=== PATIENT | female | born 2000 | race Caucasian/White ===

== ENCOUNTER 2022-04-19 14:32 | Inpatient (IN) | payer OTHER ==
[~2022-04-19] VITALS: Ht 167.6 cm; Wt 160.6 kg
--- NOTE | 2022-05-02 08:49 | NUR ---
05/02/22 0849 Justina Whiteside 0832 PATIENT IN ROOM. REPORT RECIEVED FROM ERIKA BARDALES. PATIENT IS AWAKE AND ORIENTED. BREATHING EQUAL AND UNLABORED. OXYGEN SATURATIONS ABOVE 95%. PATIENT DENIES ANY PAIN OR NAUSEA. SPINAL LEVEL CHECKED, FLUIDS LR WITH 20 OF PIT. IV SITE IS LEFT AC 18 GAUAGE SITE IS PATENT. FATHER PRESENT IN ROOM AT BEDSIDE. SR ON TELE. 0845 PATIENT AWAKE AND ORIENTED. DENIES ANY PAIN OR NAUSEA. BREATHING EQUAL AND UNLABORED. OXYGEN SATURATIONS ABOVE 95%. IVF INFUSING. PATIENT REQUESTING WATER. MOUTH SWABS GIVEN. SCD'S ON. FUNDAL CHECKS COMPLETE.
--- NOTE | 2022-05-03 13:22 | PR ---
[facility] [address], [place] [address] Signed PP Progress Notes Datetime Report Generated by CPN: 05/03/2022 13:21 SUBJECTIVE: [id number] Pain: Within Normal Limits Nausea/Vomiting: Denies Flatus: Yes Vital Signs: [id number] Vital Signs: Reviewed; Within Normal Limits EXAM: Ongoing Cardiovascular: Normal Respiratory: Normal Abdomen/Uterus: Normal Lochia: Normal Vulva/Perineum: Not Done Breasts: Not Done CVA Tenderness: Normal Extremities: Normal Incision: Normal Progress: Normal Exam Comments: Fundus firm U-2 nontender. superficial irritation of the panis unchanged from yesterday c/w yeast. Incision intact. SCDs NOT in place; discussed importance of SCDs IMPRESSION/PLAN/PROCEDURES: [id number] Impression: Normal Progression Plan: Continue Present Management Progress Notes: Pt seen and examined. Doing well. Ambulating, voiding, and tolerating full diet. Pain and lochia minimal. Breastfeedig well. C/O irritation of the panis. No fevers/chills. On exam, unchanged superficial irritation of the panis c/w yeast. Will add antifungal Signing Physician: Mercy Samaniego DO Copies: ~ *Electronically Signed* 05/03/22 2268 MERCY SAMANIEGO DO PATIENT NAME: LEOPOLDO NGUYEN PROGRESS NOTE DATE OF : 00 PHYSICIAN: MERCY SAMANIEGO DO RPT #: [id number] REPORT IS CONFIDENTIAL AND NOT TO BE RELEASED WITHOUT AUTHORIZATION
--- NOTE | 2022-05-04 09:01 | PR ---
[facility] [address] [facility] [place], [place] [address] Signed PP Progress Notes Datetime Report Generated by CPN: 05/04/2022 09:01 SUBJECTIVE: [id number] Pain: Within Normal Limits Nausea/Vomiting: Denies Flatus: Yes Vital Signs: [id number] Vital Signs: Reviewed; Within Normal Limits EXAM: Ongoing Cardiovascular: Normal Respiratory: Normal Abdomen/Uterus: Normal Lochia: Normal Vulva/Perineum: Not Done Breasts: Not Done CVA Tenderness: Normal Extremities: Normal Incision: Normal Progress: Normal Exam Comments: Fundus firm nontender. Incision well healing IMPRESSION/PLAN/PROCEDURES: [id number] Impression: Normal Progression Plan: Continue Present Management Progress Notes: Pt seen and examined. Doing well. Ambulating, voiding, and tolerating full diet. Pain and lochia minimal. well. No fevers/chills. C/O some depression sx. Pt reports she weaned herself off her antidepressant about a month ago but would like to restart. Will review rx from Dr. Woodall and likely refill from the office today. Anticipate d/c home tomorrow. Signing Physician: Mercy Samaniego DO Copies: ~ *Electronically Signed* 05/04/22900 MERCY SAMANIEGO DO PATIENT NAME: LEOPOLDO NGUYEN PROGRESS NOTE DATE OF : 00 PHYSICIAN: MERCY SAMANIEGO DO RPT #: [id number] REPORT IS CONFIDENTIAL AND NOT TO BE RELEASED WITHOUT AUTHORIZATION
--- NOTE | 2022-05-05 12:33 | PR ---
[facility] [address] [facility] [place], [place] [address] Signed PP Progress Notes Datetime Report Generated by CPN: 05/05/2022 12:33 SUBJECTIVE: [id number] Pain: Within Normal Limits Nausea/Vomiting: Denies Flatus: Yes Bowel Movement: Yes Vital Signs: [id number] Vital Signs: Reviewed; Within Normal Limits EXAM: Ongoing Cardiovascular: Normal Respiratory: Normal Abdomen/Uterus: Normal Lochia: Normal Vulva/Perineum: Not Done Breasts: Not Done CVA Tenderness: Normal Extremities: Normal Incision: Normal Progress: Normal Exam Comments: Fundus firm U-2 nontender (difficult to palpate due to body habitus). Incision clean dry intact w/ jack in place IMPRESSION/PLAN/PROCEDURES: [id number] Impression: Normal Progression Plan: Discharge Progress Notes: Pt seen and examined. Doing well. Ambulating, voiding, and tolerating full diet. Pain and lochia minimal. well. No lightheadedness, dizziness, or fevers. Signing Physician: Mercy Samaniego DO Copies: ~ *Electronically Signed* 05/05/22 1233 MERCY SAMANIEGO DO PATIENT NAME: LEOPOLDO NGUYEN PROGRESS NOTE DATE OF : 00 PHYSICIAN: MERCY SAMANIEGO DO RPT #: [id number] REPORT IS CONFIDENTIAL AND NOT TO BE RELEASED WITHOUT AUTHORIZATION
--- NOTE | 2022-05-07 17:43 | OR ---
[facility] [address] [place], [place] [address] Signed DATE OF OPERATION: 05/02/2022 SURGEON: Mercy Samaniego DO PREOPERATIVE DIAGNOSES: 1. Term and 39 weeks gestation. 2. History of prior delivery. 3. Morbid obesity. POSTOPERATIVE DIAGNOSES: 1. Term and 39 weeks gestation. 2. History of prior delivery. 3. Morbid obesity. 4. Omental adhesions. PROCEDURE PERFORMED: Repeat low transverse delivery. ANESTHESIA: Spinal. NAIL PROFESSIONAL: Andrea Shah MD. ESTIMATED BLOOD LOSS: 400 mL. DRAINS: Chavez to gravity. FINDINGS: Delivery of viable female , 8 pounds 6 ounces in the HENRY position with Apgars of 9 and 9. No nuchal cord. Normal uterus, tubes, ovaries, and placenta. There was one moderate omental adhesion to the peritoneum. INDICATIONS: Ms. Coleman is a pleasant 21-year-old patient with one prior , who presented to Labor and Delivery for repeat low transverse delivery at 39 weeks gestation. Risks, benefits, and alternatives were discussed in detail with the patient. The patient understands and wished to proceed with procedure. Electronically Signed By: MERCY SAMANIEGO DO 05/07/22 1743 PATIENT NAME: LEOPOLDO NGUYEN OPERATIVE REPORT DATE OF : 00 REPORT #: [id number] PHYSICIAN: MERCY SAMANIEGO DO PCP: CJ MARTINEZ MD REPORT IS CONFIDENTIAL AND NOT TO BE RELEASED WITHOUT AUTHORIZATION [facility] [address] [place], [place] [address] Signed TECHNIQUE: The patient was taken to the operating room. A time-out was performed to confirm correct patient, correct procedure. Spinal anesthesia was adequately established and the patient was prepped and draped in the supine position with a bump on the right hip. Chavez catheter was inserted. The patient received Ancef 3 g preoperatively per SCIP protocol and no heparin was administered. Once spinal anesthetic was noted to be adequate, a Pfannenstiel skin incision was made cutting through her prior incision scar. Incision was carried down to the fascia. The fascia was nicked in the midline and fascial incision was extended bilaterally using curved Gonzales scissors. The fascia was grasped with Nickie's, elevated, and the underlying rectus muscle dissected off bluntly and sharply. The peritoneum was grasped with hemostats, elevated, and entered sharply. Omental adhesions were noted. The peritoneum was carefully opened cephalad, caudad using sharp and blunt dissection. Portions of the adhered omentum to the peritoneum were doubly clamped, cut, and ligated using 2-0 chromic. Once omental adhesions were addressed, the peritoneal incision was extended with blunt dissection. The lower uterine segment identified. Hysterotomy was then performed using surgical scalpel. Clear amniotic fluid was noted. Hysterotomy was extended bilaterally using blunt dissection. The surgeon's hand was placed in the uterine cavity. The head elevated in the abdomen, delivered with the assistance of fundal pressure in the HENRY position. No nuchal cord was identified. The was then gently delivered with the assistance of fundal pressure and was vigorous and cried upon delivery. Cord was doubly clamped and cut. The handed to the waiting pediatric team for further care. Cord blood and portion of the cord were obtained for routine testing. The placenta was then expressed intact with centrally inserted three-vessel cord. The uterus was quite firm and bleeding was minimal. Once all products of conception removed from the uterine cavity, the uterus was reapproximated using 0 Monocryl in 2 layers. The 1st being a running locked layer and the 2nd an imbricating running layer with excellent hemostasis appreciated. Small amount of oozing was made hemostatic with Bovie electrocautery. The pelvis was irrigated and found to be hemostatic. The peritoneum was then reapproximated using 2-0 Vicryl in a running nonlocked manner. The rectus was examined, found to be hemostatic. This was then plicated in the midline with 3 loose interrupted sutures. The rectus was closely examined and found to be hemostatic. Fascia was then reapproximated using 0 Vicryl in a running nonlocked manner. Subcu was irrigated and found to be hemostatic. It was then closed in 3 layers, the 1st being deep layers of 3-0 Vicryl. This skin was then reapproximated using surgical jack. The uterus was Crede'd for scant amount of blood and the patient was taken to the PACU in good and stable condition. Sponge, needle, and instrument counts were correct x2 at the end of the procedure. Dr. Shah was present and participated in all portions of procedure. Electronically Signed By: MERCY SAMANIEGO DO 05/07/22 1968 PATIENT NAME: LEOPOLDO NGUYEN OPERATIVE REPORT DATE OF : 00 REPORT #: [id number] PHYSICIAN: MERCY SAMANIEGO DO PCP: CJ MARTINEZ MD REPORT IS CONFIDENTIAL AND NOT TO BE RELEASED WITHOUT AUTHORIZATION [address] [address] Signed Mercy Samaniego DO JDW/MODL /[id number] Copies: ~ Electronically Signed By: MERCY SAMANIEGO DO 05/07/22 1743 PATIENT NAME: LEOPOLDO NGUYEN NAKUL OPERATIVE REPORT DATE OF : 00 REPORT #: [id number] PHYSICIAN: MERCY SAMANIEGO DO PCP: CJ MARTINEZ MD REPORT IS CONFIDENTIAL AND NOT TO BE RELEASED WITHOUT AUTHORIZATION
== END 2022-05-05 12:34 | disposition home or self-care (01) | DRG 787 ==
LOC: FBC 05-02 00:02 → MS 05-02 07:30 → FBC 05-05 12:34
PROVIDERS: ADMIT Obstetrics & Gynecology; ATTEND Obstetrics & Gynecology
PROC: 10D00Z1 Extraction of Products of Conception, Low, Open Approach (ICD-10-PCS; principal; 2022-05-02 07:30)
DX: O34.211 Maternal care for low transverse scar from previous cesarean delivery (principal); O98.92 Unspecified maternal infectious and parasitic disease complicating childbirth; O99.214 Obesity complicating childbirth; E66.01 Morbid (severe) obesity due to excess calories; Z3A.39 39 weeks gestation of pregnancy; Z37.0 Single live birth; Z20.822 Contact with and (suspected) exposure to COVID-19; B37.2 Candidiasis of skin and nail; O99.345 Other mental disorders complicating the puerperium; F53.0 Postpartum depression; F41.9 Anxiety disorder, unspecified; Z87.891 Personal history of nicotine dependence; Z98.890 Other specified postprocedural states; Z90.49 Acquired absence of other specified parts of digestive tract; Z87.440 Personal history of urinary (tract) infections; Z86.19 Personal history of other infectious and parasitic diseases; Z79.899 Other long term (current) drug therapy; Z88.9 Allergy status to unspecified drugs, medicaments and biological substances
CPT/HCPCS: 36415; 85027; 86850; 86900; 86901; 87502; A9270; J0690; J1650; J1885; J2274; J2300; J2370; J2405; J2590; J7121; U0003

== ENCOUNTER 2023-09-16 13:23 | Emergency (ER) | payer OTHER ==
[~2023-09-16] VITALS: Ht 165.1 cm; Wt 155.8 kg
[~2023-09-16 13:23] MED LIST: BACTRIM DS TAB1 EACH PO; M-NATAL PLUS T1 EACH PO
--- OUTSIDE RECORDS SUMMARY | 2023-09-16 13:30 | XMS ---
PreManage Notification: LEOPOLDO EWING Security Field Automobile Adjuster Events No recent Security Events currently on file CRITERIA MET - [place] [facility] - 2 Visits in 30 Days CARE PROVIDERS Mickie Herzog Community Health Worker 07/03/2019-Current PHONE: [phone] -, Tawnya- Dentist: Sound Equipment Mechanic Current [facility] PHONE: [phone] [facility] PHONE: Unknown Care Guidelines exist for the following facilities: Sumomi Venango ( 05/27/2021 ) Boxed ( 07/26/2020 ) My VISIT COUNT (12 MO.) 3 [facility] 2 [facility] TOTAL 5 NOTE: Visits indicate total known visits. ED/UCC VISIT TRACKING (12 MO.) 09/16/2023 13:23 [facility] [place] TYPE: Emergency COMPLAINT: - ABDOMINAL PAIN 08/18/2023 01:42 [facility] [place] TYPE: Emergency COMPLAINT: - R INNER THIGH DIAGNOSES: - Allergy status to other antibiotic agents - Cellulitis of right lower limb - Disorder of the skin and subcutaneous tissue, unspecified - Personal history of nicotine dependence 04/05/2023 09:45 [facility] [place] TYPE: Emergency DIAGNOSES: - Abnormal uterine and vaginal bleeding, unspecified - VAGINAL BLEEDING 01/19/2023 13:28 [facility] [place] TYPE: Emergency DIAGNOSES: - Acute cystitis without hematuria - UTI SOB 10/15/2022 16:47 [facility] [place] TYPE: Emergency DIAGNOSES: - Acute upper respiratory infection, unspecified - not feeling well INPATIENT VISIT TRACKING (12 MO.) No inpatient visits to display in this time frame [email or web address]
[2023-09-16 14:16] LABS: BASOPHILS 0.9 % (0-2); EOSINOPHILS 1.5 % (0-6); HEMATOCRIT 42.8 % (35.0-50.0); HEMOGLOBIN 13.9 g/dL (12.0-18.0); LYMPHOCYTES 25.9 % (24-44); MCH 28.9 (27-36); MCHC 32.6 g/dl (30-36); MCV 88.8 fl (81-99); NEUTROPHILS 66.7 % (39-80); PLATELET COUNT 295 K/uL (140-440); RBC 4.82 M/ul (4.3-5.7)
[2023-09-16 14:32] LABS: ALBUMIN 3.5 g/dL (3.4-5.0); ANION GAP 13.7 (7-21); BILIRUBIN, TOTAL 0.8 ng/dL (0.2-1.0); BUN/CREATININE RATIO 10.12 (6.0-28.6); CALCIUM 8.3 mg/dL (8.5-10.1); CREATININE, SERUM 0.79 mg/dL (0.55-1.02); POTASSIUM 3.7 mmol/L (3.5-5.1)
[2023-09-16 15:33] VITALS: BP 102/73
== END 2023-09-16 15:33 | disposition home or self-care (01) ==
LOC: ED 13:23
PROVIDERS: Emergency Medicine
DX: R10.2 Pelvic and perineal pain (principal); E66.9 Obesity, unspecified; Z68.43 Body mass index [BMI] 50.0-59.9, adult; Z87.891 Personal history of nicotine dependence
CPT/HCPCS: 36415; 80053; 84703; 85025; J1885

== ENCOUNTER 2023-11-18 18:48 | Emergency (ER) | payer OTHER ==
[~2023-11-18] VITALS: Ht 165.1 cm; Wt 153.3 kg
--- OUTSIDE RECORDS SUMMARY | 2023-11-18 18:56 | XMS ---
PreManage Notification: LEOPOLDO EWING Security Office Correspondent Events No recent Security Events currently on file CRITERIA MET - [facility] - 2 Visits in 30 Days CARE PROVIDERS Mickie Herzog Community Health Worker 07/03/2019-Current PHONE: [phone] -, Tawnya- Dentist: Plastics Seasoner Operator [facility] PHONE: [phone] [facility] Current \F\ [facility] PHONE: [phone] GISSEL JOHNSON [facility] Current PHONE: Unknown Care Guidelines exist for the following facilities: [employer] ( 05/27/2021 ) [email or web address] ( 01/22/2019 ) My VISIT COUNT (12 MO.) 4 [facility] 2 [facility] TOTAL 6 NOTE: Visits indicate total known visits. ED/UCC VISIT TRACKING (12 MO.) 11/18/2023 18:48 [facility] [place] TYPE: Emergency COMPLAINT: - VAG BLEEDING 11/03/2023 19:04 [facility] [place] TYPE: Emergency COMPLAINT: - HAND PAIN DIAGNOSES: - Allergy status to other antibiotic agents - Contusion of left hand, initial encounter - Contusion of right hand, initial encounter - Fall (on) (from) unspecified stairs and steps, initial encounter - Personal history of nicotine dependence - Unspecified asthma, uncomplicated 09/16/2023 13:23 [facility] [place] TYPE: Emergency COMPLAINT: - ABDOMINAL PAIN DIAGNOSES: - Body mass index [BMI] 50.0-59.9, adult - Left lower quadrant pain - Obesity, unspecified - Pelvic and perineal pain - Personal history of nicotine dependence 08/18/2023 01:42 [facility] [place] TYPE: Emergency COMPLAINT: - R INNER THIGH DIAGNOSES: - Allergy status to other antibiotic agents - Cellulitis of right lower limb - Disorder of the skin and subcutaneous tissue, unspecified - Personal history of nicotine dependence 04/05/2023 09:45 [facility] [place] TYPE: Emergency DIAGNOSES: - Abnormal uterine and vaginal bleeding, unspecified - VAGINAL BLEEDING 01/19/2023 13:28 [facility] [place] TYPE: Emergency DIAGNOSES: - Acute cystitis without hematuria - UTI SOB INPATIENT VISIT TRACKING (12 MO.) No inpatient visits to display in this time frame [email or web address]
[2023-11-18 19:57] LABS: BASOPHILS 0.8 % (0-2); EOSINOPHILS 1.5 % (0-6); HEMATOCRIT 41.8 % (35.0-50.0); HEMOGLOBIN 13.8 g/dL (12.0-18.0); MCH 29.1 (27-36); MCHC 32.9 g/dl (30-36); MCV 88.5 fl (81-99); MONOCYTES 5.9 % (0-12); NEUTROPHILS 66.8 % (39-80); PLATELET COUNT 288 K/uL (140-440); RBC 4.72 M/ul (4.3-5.7); RDW 14.4 (10.5-15.0)
[2023-11-18 20:18] LABS: ALBUMIN 3.3 g/dL (3.4-5.0); ALBUMIN/GLOBULIN RATIO 0.85 (1.1-2.4); BILIRUBIN, TOTAL 0.9 ng/dL (0.2-1.0); BUN/CREATININE RATIO 15.73 (6.0-28.6); CALCIUM 8.7 mg/dL (8.5-10.1); CREATININE, SERUM 0.89 mg/dL (0.55-1.02); PROTEIN, TOTAL 7.2 g/dL (6.4-8.2); TSH, 3RD GENERATION 0.584 uIU/mL (0.358-3.740)
[2023-11-18] MEDS ORDERED: MEGESTROL ACETA40 MG PO (21:04)
[2023-11-18 21:24] VITALS: BP 107/74
[2023-11-21 22:47] LABS: TESTOSTERONE BY IMMUNOASSAY 19 ng/dL (())
== END 2023-11-18 21:25 | disposition home or self-care (01) ==
LOC: ED 18:48
PROVIDERS: Family Medicine
DX: N92.0 Excessive and frequent menstruation with regular cycle (principal); Z87.891 Personal history of nicotine dependence
CPT/HCPCS: 36415; 76830; 76856; 80053; 83525; 84403; 84443; 84703; 85025; 99284-25